=== PATIENT | female | born 2000 | race Caucasian/White ===

== ENCOUNTER 2021-10-04 14:38 | Emergency (ER) | payer MEDICAID ==
[~2021-10-04] VITALS: Ht 160 cm; Wt 69.2 kg
[2021-10-04 14:55] LABS: BASOPHILS % (AUTO) 0.2 % (0.0-2.0); EOSINOPHILS % (AUTO) 0.6 % (1.0-6.0); HEMATOCRIT 39.2 % (36-46); HEMOGLOBIN 13.1 g/dL (12.0-16.0); LYMPHOCYTES # (AUTO) 3.5 K/uL (1.0-4.8); LYMPHOCYTES % (AUTO) 24.2 % (22.0-44.0); MEAN CORPUSCULAR HEMOGLOBIN 29.2 pg (26.0-34.0); MEAN CORPUSCULAR HGB CONC 33.4 G/dL (31.0-37.0); MEAN CORPUSCULAR VOLUME 87 fL (80-100); MONOCYTES # (AUTO) 0.6 K/uL (0.1-1.0); MONOCYTES % (AUTO) 4.1 % (2.0-9.0); NEUTROPHILS # (AUTO) 10.3 K/uL (1.8-7.7); NEUTROPHILS % (AUTO) 70.9 % (40.0-70.0); PLATELET COUNT (AUTO) 227 K/uL (150-450); RED BLOOD CELL COUNT(AUTO) 4.49 MIL/uL (4.00-5.20); RED CELL DISTRIBUTION WIDTH 13.1 % (11.5-14.5)
[2021-10-04 15:08] LABS: ANION GAP 13 mmol/L (8-16); CALCIUM, TOTAL 8.2 mg/dL (8.8-10.5); CARBON DIOXIDE 20 mmol/L (22-29); CHLORIDE 104 mmol/L (98-107); CREATININE 0.56 mg/dL (0.60-1.30); GLUCOSE,RANDOM 93 mg/dL (70-110); POTASSIUM 3.3 mmol/L (3.5-5.1); SODIUM SERUM 137 mmol/L (136-145); UREA NITROGEN, BLOOD 6 mg/dL (7-18)
[2021-10-04 15:10] LABS: GLOMERULAR FILTR. RATE CALC > 60 mL/min (>60)
[2021-10-04 15:14] LABS: ALANINE AMINOTRANSFERASE 46 U/L (12-78); ALBUMIN 2.8 g/dL (3.4-5.0); ALKALINE PHOSPHATASE 149 U/L (46-116); ASPARTATE AMINOTRANSFERASE 35 U/L (15-37); BILIRUBIN,TOTAL 0.2 mg/dL (0.1-1.0); TOTAL PROTEIN, SERUM 6.8 g/dL (6.4-8.2)
[2021-10-04 15:27] LABS: B-TYPE NATRIURETIC PEPTIDE 14 pg/mL (0-100)
[2021-10-04 15:50] VITALS: BP 111/72
== END 2021-10-04 16:38 | disposition home or self-care (01) ==
LOC: EMS 14:38
DX: O99.513 Diseases of the respiratory system complicating pregnancy, third trimester (principal); R06.02 Shortness of breath; R55 Syncope and collapse; Z3A.33 33 weeks gestation of pregnancy; Z88.0 Allergy status to penicillin
CPT/HCPCS: 71045; 80053; 83880; 84484; 85025; 93005; 99285; 36415-L1; 36415-TC